=== PATIENT | female | born 1970 | race Two or more races ===

== ENCOUNTER 2016-11-16 20:39 | Inpatient (IN) | payer MEDICAID ==
[~2016-11-16] VITALS: Ht 160 cm; Wt 75.4 kg
[2016-11-16 22:15] LABS: Urine Bilirubin Negative (Negative); Urine Color PINK (Yellow); Urine Glucose Normal (Normal); Urine Ketone Negative (Negative); Urine Mucus FEW (None Seen); Urine Nitrite Negative (Negative); Urine RBC 626 /hpf (0 - 4); Urine Squamous Epithelial Cell FEW /hpf (<5); Urine Urobilinogen Normal (Negative)
[2016-11-16 22:16] LABS: Urine Blood 3+ /uL (Negative)
[2016-11-16 23:11] LABS: Basophils # (auto) 0.1 uL; Basophils % (auto) 0.8 % (0.0-2.0); DEFINITIVE VIEW TRANSMISSION; Eosinophils # (auto) 0.4 uL; Eosinophils % (auto) 4.9 % (0.0-7.0); Hematocrit 16.4 % (36.0-46.0); Lymphocytes # (auto) 2.8 uL; Lymphocytes % (auto) 32.8 % (10.0-50.0); Mean Corpuscular Hemoglobin 16.2 pg (28.0-32.0); Mean Corpuscular Hgb Conc. 28.8 g/dL (32.0-36.0); Mean Corpuscular Volume 56.3 fL (80.0-100.0); Mean Platelet Volume 9.8 fL (7.4-10.4); Monocytes # (auto) 0.4 uL; Neutrophils # (auto) 4.8 uL; Neutrophils % (auto) 56.5 % (37.0-80.0); Platelet Count (auto) 360 10^3/uL (140-450); White Blood Cell 8.6 10^3/uL (4.4-10.8)
[2016-11-16 23:23] LABS: Hemoglobin 4.7 g/dL (12.2-16.2)
[2016-11-16 23:27] LABS: Albumin 3.7 g/dL (3.4-5.0); BUN/Creatinine Ratio 17.6; Calcium 8.4 mg/dL (8.5-10.1); Potassium 3.5 mmol/L (3.5-5.1)
[2016-11-16 23:30] LABS: Bilirubin, Total 0.7 mg/dL (0.2-1.0); Total Protein 7.7 g/dL (6.4-8.2)
[2016-11-17] VITALS (22 sets, daily range): BP systolic 103–124; BP diastolic 52–75
[2016-11-17 06:09] LABS: Hypochromia Marked; Platelet Estimate Adequate
[2016-11-17 06:10] LABS: Microcytosis Marked; Ovalocytes MANY
[2016-11-17 06:12] LABS: Anisocytosis Marked
[2016-11-17] MEDS ORDERED: LEVOFLOXACIN 500MG 100 ML IV SCH (07:00)
[2016-11-17] MEDS ORDERED: NITROGLYCERIN 0.4 MG SL TAB SL PRN (07:00)
[2016-11-17] MEDS ORDERED: ACETAMINOPHEN 325 MG TAB PO ONE (07:00)
[2016-11-17] MEDS ORDERED: ONDANSETRON HCL 4 MG/2 ML VIAL IV PRN (07:00)
[2016-11-17] MEDS ORDERED: ACETAMINOPHEN 325 MG TAB PO PRN (07:00)
[2016-11-17] MEDS ORDERED: MORPHINE SULF INJ 2 MG/ML SYRINGE 1ML IV PRN (07:00)
[2016-11-17] MEDS ORDERED: diphenhdrAMINE HCL 50 MG/1 ML VL IV ONE (07:00)
[2016-11-17 10:23] LABS: Hematocrit 22.8 % (36.0-46.0)
[2016-11-17] MEDS: LEVOFLOXACIN 500MG 100 ML IV SCH (10:26)
[2016-11-17] MEDS: PANTOPRAZOLE 40 MG TAB PO SCH (10:26)
[2016-11-17] MEDS: SODIUM CHLORIDE 0.9% 1,000 ML IV SCH (10:27)
[2016-11-17 10:40] LABS: Hemoglobin 6.9 g/dL (12.2-16.2)
[2016-11-17 18:26] LABS: Hematocrit 30.6 % (36.0-46.0); Hemoglobin 9.2 g/dL (12.2-16.2)
[2016-11-17 22:18] LABS: Hematocrit 29.9 % (36.0-46.0); Hemoglobin 9.1 g/dL (12.2-16.2)
[2016-11-18] VITALS (13 sets, daily range): BP systolic 111–135; BP diastolic 65–80
[2016-11-18] MEDS: SODIUM CHLORIDE 0.9% 1,000 ML IV SCH ×2 (02:58→18:44)
[2016-11-18 06:10] LABS: Basophils # (auto) 0.1 uL; Basophils % (auto) 0.7 % (0.0-2.0); DEFINITIVE VIEW TRANSMISSION; Eosinophils # (auto) 0.3 uL; Eosinophils % (auto) 3.6 % (0.0-7.0); Hematocrit 32.3 % (36.0-46.0); Hemoglobin 9.9 g/dL (12.2-16.2); Lymphocytes # (auto) 1.8 uL; Lymphocytes % (auto) 19.6 % (10.0-50.0); Mean Corpuscular Hemoglobin 22.2 pg (28.0-32.0); Mean Corpuscular Hgb Conc. 30.7 g/dL (32.0-36.0); Mean Corpuscular Volume 72.3 fL (80.0-100.0); Mean Platelet Volume 10.4 fL (7.4-10.4); Monocytes # (auto) 0.6 uL; Monocytes % (auto) 6.1 % (0.0-12.0); Neutrophils # (auto) 6.4 uL; Platelet Count (auto) 275 10^3/uL (140-450); SUSPECT VIEW TRANSMISSION; White Blood Cell 9.2 10^3/uL (4.4-10.8)
[2016-11-18 06:11] LABS: Red Cell Distribution Width 32.6 % (11.6-16.0)
[2016-11-18 06:14] LABS: Anisocytosis Marked; Platelet Estimate Adequate
[2016-11-18 06:15] LABS: Hypochromia Slight; Ovalocytes FEW
[2016-11-18 06:19] LABS: Albumin 3.1 g/dL (3.4-5.0); BUN/Creatinine Ratio 10.9; Calcium 8.4 mg/dL (8.5-10.1)
[2016-11-18 06:22] LABS: Bilirubin, Total 1.3 mg/dL (0.2-1.0); Total Protein 6.9 g/dL (6.4-8.2)
[2016-11-18 06:42] LABS: Microcytosis Moderate
[2016-11-18 08:47] LABS: INR 0.99 (0.9-1.15); Partial Thromboplastin Time 23.3 sec (22.64-33.71); Prothrombin Time 10.7 sec (9.37-12.3)
[2016-11-18] MEDS: LEVOFLOXACIN 500MG 100 ML IV SCH (09:54)
[2016-11-18] MEDS: PANTOPRAZOLE 40 MG TAB PO SCH (09:54)
[2016-11-18] MEDS ORDERED: LIDOCAINE W/ EPINEPHRINE 1 % INJ 30ML ONE (14:27)
[2016-11-18] MEDS ORDERED: LIDOCAINE HCL (LOCAL ANESTH.) 0.5 % 50ML MDV IJ ONE (14:27)
[2016-11-18] MEDS ORDERED: BUPIVACAINE 0.25% INJ 50ML VIAL ONE (14:28)
[2016-11-18] MEDS ORDERED: ceFAZolin 1GM/50ML D5W 50 ML IV ONE (14:38)
[2016-11-18] MEDS ORDERED: CLINDAMYCIN 600MG IV 50 ML IV ONE (14:44)
[2016-11-18] MEDS ORDERED: PROPOFOL 10 MG/ML 20 ML IV ONE (14:50)
[2016-11-18] MEDS ORDERED: MIDAZOLAM HCL 1MG/1ML-2 ML VIAL ONE (14:50)
[2016-11-18] MEDS ORDERED: ROCURONIUM 10MG/ML 10ML VIAL IV ONE (14:50)
[2016-11-18] MEDS ORDERED: fentaNYL CITRATE 100 MCG/2 ML VL ONE ×2 (14:50→15:37)
[2016-11-18] MEDS ORDERED: NEOSTIGMINE 1 MG/ML INJ (10mg/10ML VIAL) IV ONE (14:50)
[2016-11-18] MEDS ORDERED: GLYCOPYRROLATE 0.2 MG/ML 1ML VIAL IV ONE (14:50)
[2016-11-18] MEDS ORDERED: KETOROLAC TROMETH 60MG/2ML VIAL IM ONE (14:50)
[2016-11-18] MEDS ORDERED: hydrALAZINE HCL 20 MG/ML VL IV PRN (16:15)
[2016-11-18] MEDS ORDERED: ePHEDrine SULFATE 50 MG/ML AMP IV PRN (16:15)
[2016-11-18] MEDS ORDERED: ONDANSETRON HCL 4 MG/2 ML VIAL IV ONE (16:15)
[2016-11-18] MEDS ORDERED: CLINDAMYCIN 900MG IV 50 ML IV ONE (16:30)
[2016-11-18] MEDS ORDERED: ONDANSETRON HCL 4 MG/2 ML VIAL IV PRN (16:30)
[2016-11-18] MEDS ORDERED: ACETAMINOPHEN 500 MG TAB PO PRN (16:30)
[2016-11-18] MEDS: HYDROmorphone HCL 2 MG/ML VL IV PRN ×3 (16:35→16:55)
[2016-11-18] MEDS ORDERED: ACETAMINOPHEN 325 MG TAB PO PRN (16:39)
[2016-11-18] MEDS: MORPHINE SULF INJ 2 MG/ML SYRINGE 1ML IV PRN ×2 (18:24→21:03)
[2016-11-18] MEDS: HYDROcodone-ACET 5/325MG TAB PO PRN (19:18)
[2016-11-19] MEDS: SODIUM CHLORIDE 0.9% 1,000 ML IV SCH ×4 (01:39→20:15)
[2016-11-19] MEDS: MORPHINE SULF INJ 2 MG/ML SYRINGE 1ML IV PRN ×4 (01:39→22:04)
[2016-11-19 04:57] VITALS: BP 129/62
[2016-11-19 07:13] LABS: Basophils # (auto) 0 uL; DEFINITIVE VIEW TRANSMISSION; Eosinophils # (auto) 0 uL; Hemoglobin 10.8 g/dL (12.2-16.2); Lymphocytes # (auto) 0.6 uL; Lymphocytes % (auto) 5.4 % (10.0-50.0); Mean Corpuscular Hemoglobin 23.1 pg (28.0-32.0); Mean Corpuscular Hgb Conc. 31.7 g/dL (32.0-36.0); Mean Corpuscular Volume 72.9 fL (80.0-100.0); Mean Platelet Volume 9.4 fL (7.4-10.4); Monocytes # (auto) 0.4 uL; Monocytes % (auto) 3.3 % (0.0-12.0); Neutrophils # (auto) 10.5 uL; Neutrophils % (auto) 91.3 % (37.0-80.0); Platelet Count (auto) 256 10^3/uL (140-450); SUSPECT VIEW TRANSMISSION; White Blood Cell 11.5 10^3/uL (4.4-10.8)
[2016-11-19 07:21] LABS: Red Cell Distribution Width 32.3 % (11.6-16.0)
[2016-11-19 07:37] LABS: Anisocytosis Marked; Hypochromia Moderate; Microcytosis Moderate; Platelet Estimate Adequate; Schistocytes FEW
[2016-11-19 07:38] LABS: Ovalocytes FEW; Tear Drop Cells FEW
[2016-11-19 09:00] VITALS: BP 130/71
[2016-11-19] MEDS: LEVOFLOXACIN 500MG 100 ML IV SCH (09:44)
[2016-11-19] MEDS: PANTOPRAZOLE 40 MG TAB PO SCH (09:45)
[2016-11-19] MEDS: HYDROcodone-ACET 5/325MG TAB PO PRN (13:05)
[2016-11-19 13:28] VITALS: BP 126/73
[2016-11-19 17:00] VITALS: BP 125/76
[2016-11-19 21:31] VITALS: BP 120/61
[2016-11-20] MEDS: MORPHINE SULF INJ 2 MG/ML SYRINGE 1ML IV PRN (02:51)
[2016-11-20 04:48] VITALS: BP 132/81
[2016-11-20 05:41] LABS: Basophils # (auto) 0 uL; Basophils % (auto) 0.3 % (0.0-2.0); DEFINITIVE VIEW TRANSMISSION; Eosinophils # (auto) 0 uL; Eosinophils % (auto) 0.2 % (0.0-7.0); Hematocrit 35.8 % (36.0-46.0); Lymphocytes # (auto) 1.5 uL; Lymphocytes % (auto) 10.1 % (10.0-50.0); Mean Corpuscular Hemoglobin 22.8 pg (28.0-32.0); Mean Corpuscular Hgb Conc. 30.8 g/dL (32.0-36.0); Mean Corpuscular Volume 74.1 fL (80.0-100.0); Mean Platelet Volume 11.1 fL (7.4-10.4); Monocytes # (auto) 0.7 uL; Monocytes % (auto) 4.6 % (0.0-12.0); Neutrophils % (auto) 84.8 % (37.0-80.0); Platelet Count (auto) 299 10^3/uL (140-450); SUSPECT VIEW TRANSMISSION; White Blood Cell 15.3 10^3/uL (4.4-10.8)
[2016-11-20 05:42] LABS: Red Cell Distribution Width 33.3 % (11.6-16.0)
[2016-11-20 06:08] LABS: BUN/Creatinine Ratio 12.2; Calcium 8.7 mg/dL (8.5-10.1); Magnesium 2.3 mg/dL (1.6-2.6); Potassium 3.6 mmol/L (3.5-5.1)
[2016-11-20 06:58] LABS: Anisocytosis Moderate; Macrocytosis Slight; Ovalocytes FEW; Platelet Estimate Adequate; Polychromasia Slight
[2016-11-20] MEDS: SODIUM CHLORIDE 0.9% 1,000 ML IV SCH ×2 (07:24→11:15)
[2016-11-20 08:00] VITALS: BP 132/81
[2016-11-20 09:00] VITALS: BP 128/83
[2016-11-20] MEDS: PANTOPRAZOLE 40 MG TAB PO SCH (10:22)
[2016-11-20] MEDS: LEVOFLOXACIN 500MG 100 ML IV SCH (10:22)
[2016-11-20] MEDS: HYDROcodone-ACET 5/325MG TAB PO PRN ×2 (10:27→19:45)
[2016-11-20 13:00] VITALS: BP 129/81
[2016-11-20 21:11] VITALS: BP 128/72
[2016-11-21] MEDS: SODIUM CHLORIDE 0.9% 1,000 ML IV SCH (01:33)
[2016-11-21 05:06] VITALS: BP 128/74
[2016-11-21] MEDS: HYDROcodone-ACET 5/325MG TAB PO PRN (05:26)
[2016-11-21 05:42] LABS: Basophils # (auto) 0 uL; Basophils % (auto) 0.3 % (0.0-2.0); DEFINITIVE VIEW TRANSMISSION; Eosinophils # (auto) 0.3 uL; Eosinophils % (auto) 2.5 % (0.0-7.0); Hematocrit 38.3 % (36.0-46.0); Hemoglobin 11.9 g/dL (12.2-16.2); Lymphocytes # (auto) 2.2 uL; Mean Corpuscular Hemoglobin 23.1 pg (28.0-32.0); Mean Corpuscular Volume 74.5 fL (80.0-100.0); Mean Platelet Volume 10.2 fL (7.4-10.4); Monocytes # (auto) 0.7 uL; Monocytes % (auto) 6.3 % (0.0-12.0); Neutrophils # (auto) 8.2 uL; Neutrophils % (auto) 71.9 % (37.0-80.0); Platelet Count (auto) 271 10^3/uL (140-450); SUSPECT VIEW TRANSMISSION; White Blood Cell 11.3 10^3/uL (4.4-10.8)
[2016-11-21 05:47] LABS: Red Cell Distribution Width 33.4 % (11.6-16.0)
[2016-11-21 06:53] LABS: Anisocytosis Moderate; Giant Platelets Few; Hypochromia Moderate; Ovalocytes FEW; Platelet Estimate Adequate
[2016-11-21 08:05] VITALS: BP 125/76
[2016-11-21 08:56] VITALS: BP 125/76
[2016-11-21] MEDS: LEVOFLOXACIN 500MG 100 ML IV SCH (09:56)
[2016-11-21] MEDS: PANTOPRAZOLE 40 MG TAB PO SCH (09:56)
[2016-11-21 13:00] VITALS: BP 136/72
[2016-11-21 14:35] VITALS: BP 125/76
== END 2016-11-21 15:40 | disposition home or self-care (01) | DRG 519 ==
LOC: ER 20:49 → TELE 20:50 → TELE-WESTW 11-17 09:34
PROVIDERS: ADMIT Nurse Practitioner; ATTEND Internal Medicine
PROC: 30233N1 Transfusion of Nonautologous Red Blood Cells into Peripheral Vein, Percutaneous Approach (ICD-10-PCS; 2016-11-17)
PROC: 0UTC0ZZ Resection of Cervix, Open Approach (ICD-10-PCS; 2016-11-18)
PROC: 0UT70ZZ Resection of Bilateral Fallopian Tubes, Open Approach (ICD-10-PCS; 2016-11-18)
PROC: 0UT90ZZ Resection of Uterus, Open Approach (ICD-10-PCS; principal; 2016-11-18 14:50)
DX: D25.0 Submucous leiomyoma of uterus (principal); N39.0 Urinary tract infection, site not specified; N80.0 Endometriosis of uterus; N92.0 Excessive and frequent menstruation with regular cycle; R73.9 Hyperglycemia, unspecified; D50.0 Iron deficiency anemia secondary to blood loss (chronic); R63.4 Abnormal weight loss; N73.6 Female pelvic peritoneal adhesions (postinfective); Z83.3 Family history of diabetes mellitus; Z82.49 Family history of ischemic heart disease and other diseases of the circulatory system; Z88.0 Allergy status to penicillin; Z68.29 Body mass index [BMI] 29.0-29.9, adult
CPT/HCPCS: 36415; 36430; 71010; 76830; 76856; 80048; 80053; 80061; 81001; 81025; 83036; 83735; 84702; 85014; 85018; 85025; 85610; 85730; 86850; 86900; 86901; 86920; 93005; 96374; J0690; J1885; J1956; J2250; J2405; J2704; J3490

== ENCOUNTER → 2016-12-08 | Outpatient (CLI) | payer MEDICAID ==
[2016-12-08 12:50] LABS: Basophils # (auto) 0.1 uL; Basophils % (auto) 0.7 % (0.0-2.0); DEFINITIVE VIEW TRANSMISSION; Eosinophils # (auto) 0.4 uL; Eosinophils % (auto) 4.6 % (0.0-7.0); Hematocrit 38.4 % (36.0-46.0); Hemoglobin 12.5 g/dL (12.2-16.2); Lymphocytes # (auto) 2.4 uL; Lymphocytes % (auto) 26.3 % (10.0-50.0); Mean Corpuscular Hemoglobin 24.7 pg (28.0-32.0); Mean Corpuscular Hgb Conc. 32.5 g/dL (32.0-36.0); Mean Corpuscular Volume 76.2 fL (80.0-100.0); Mean Platelet Volume 9.2 fL (7.4-10.4); Monocytes # (auto) 0.4 uL; Monocytes % (auto) 4.4 % (0.0-12.0); Neutrophils # (auto) 5.8 uL; Platelet Count (auto) 546 10^3/uL (140-450); SUSPECT VIEW TRANSMISSION
[2016-12-08 12:56] LABS: Red Cell Distribution Width 30.7 % (11.6-16.0)
[2016-12-08 13:48] LABS: Platelet Estimate Adequate
[2016-12-08 13:50] LABS: Anisocytosis Moderate; Hypochromia Slight; Ovalocytes FEW
== END | disposition home or self-care (01) ==
LOC: LAB 12:02
PROVIDERS: ATTEND Obstetrics & Gynecology
DX: R53.1 Weakness (principal)
CPT/HCPCS: 36415; 85025

== ENCOUNTER 2017-07-28 10:45 | Emergency (ER) | payer SELFPAY ==
[~2017-07-28] VITALS: Ht 160 cm; Wt 72.6 kg
[2017-07-28] MEDS ORDERED: SODIUM CHLORIDE 0.9% 1,000 ML IV ONE (13:15)
[2017-07-28 13:53] LABS: Basophils # (auto) 0.1 uL; Basophils % (auto) 0.8 % (0.0-2.0); Eosinophils # (auto) 0.4 uL; Hematocrit 46.4 % (36.0-46.0); Hemoglobin 15.6 g/dL (12.2-16.2); Lymphocytes # (auto) 1.6 uL; Lymphocytes % (auto) 24.8 % (10.0-50.0); Mean Corpuscular Hemoglobin 28.5 pg (28.0-32.0); Mean Corpuscular Hgb Conc. 33.5 g/dL (32.0-36.0); Mean Corpuscular Volume 85.1 fL (80.0-100.0); Monocytes # (auto) 0.4 uL; Monocytes % (auto) 5.5 % (0.0-12.0); Neutrophils % (auto) 62.9 % (37.0-80.0); Nucleated Red Blood Cells % 0.1 %; Platelet Count (auto) 209 10^3/uL (140-450); Red Blood Cells 5.46 10^6/uL (4.0-5.20); Red Cell Distribution Width 14.9 % (11.8-14.3); White Blood Cell 6.4 10^3/uL (4.4-10.8)
[2017-07-28 13:55] LABS: Albumin 3.9 g/dL (3.4-5.0); Bilirubin, Total 1.4 mg/dL (0.2-1.0); Calcium 9.1 mg/dL (8.5-10.1); Potassium 3.8 mmol/L (3.5-5.1); Total Protein 8.1 g/dL (6.4-8.2)
[2017-07-28 14:01] VITALS: BP 116/65
== END 2017-07-28 14:52 | disposition home or self-care (01) ==
LOC: ER 10:45
DX: N76.0 Acute vaginitis (principal); E11.65 Type 2 diabetes mellitus with hyperglycemia; Z88.0 Allergy status to penicillin
CPT/HCPCS: 36415; 80053; 82962; 85025; 87210; 96360; 99284; J7030

== ENCOUNTER 2020-10-12 14:08 | Emergency (ER) | payer MEDICAID ==
[~2020-10-12] VITALS: Ht 157.5 cm; Wt 72.6 kg
[2020-10-12] MEDS ORDERED: KETOROLAC TROMETH 60MG/2ML VIAL IM ONE (17:15)
[2020-10-12] MEDS ORDERED: IOHEXOL 300 MG/ML 100ML BOTTLE IJ ONE (21:11)
[2020-10-12 21:43] LABS: Basophils # (auto) 0 10 ^3/uL (0-0.2); Basophils % (auto) 0.5 % (0.0-2.0); Eosinophils # (auto) 0.1 10 ^3/uL (0-0.8); Eosinophils % (auto) 1.1 % (0.0-7.0); Hematocrit 43.3 % (36.0-46.0); Hemoglobin 15.4 g/dL (12.2-16.2); Lymphocytes # (auto) 1.7 10 ^3/uL (0.4-5.4); Lymphocytes % (auto) 17.5 % (10.0-50.0); Mean Corpuscular Hemoglobin 31.5 pg (28.0-32.0); Mean Corpuscular Hgb Conc. 35.5 g/dL (32.0-36.0); Mean Corpuscular Volume 88.7 fL (80.0-100.0); Monocytes # (auto) 0.4 10 ^3/uL (0-1.3); Monocytes % (auto) 4.4 % (0.0-12.0); Neutrophils # (auto) 7.4 10 ^3/uL (1.6-8.6); Neutrophils % (auto) 76.5 % (37.0-80.0); Nucleated Red Blood Cells % 0.9 %; Platelet Count (auto) 227 10^3/uL (140-450); Red Blood Cells 4.88 10^6/uL (4.0-5.20); Red Cell Distribution Width 13.3 % (11.8-14.3); White Blood Cell 9.6 10^3/uL (4.4-10.8)
[2020-10-12 21:58] LABS: INR 0.97 (0.9-1.15); Partial Thromboplastin Time 22.8 sec (23.0-31.2)
[2020-10-12 21:59] LABS: Alanine Aminotransferase 101 U/L (13-56); Albumin 3.8 g/dL (3.4-5.0); Anion Gap 12 (5-15); Aspartate Aminotransferase 84 U/L (15-37); BUN/Creatinine Ratio 13.6; Blood Urea Nitrogen 9 mg/dL (7-18); Calcium 8.9 mg/dL (8.5-10.1); Carbon Dioxide 22 mmol/L (21-32); Chloride 99 mmol/L (98-107); GFR African American 122 mL/min; GFR Non-African American 101 mL/min; Potassium 4.1 mmol/L (3.5-5.1); Sodium 133 mmol/L (136-145)
[2020-10-12 22:02] LABS: Glucose 406 mg/dL (74-106)
[2020-10-12 22:04] LABS: Alkaline Phosphatase 169 U/L (45-117); Bilirubin, Total 1.3 mg/dL (0.2-1.0); Total Protein 7.6 g/dL (6.4-8.2)
[2020-10-12] MEDS ORDERED: InsuLIN REG 1unit/0.01ml Soln (100units/ml) IV ONE (22:45)
[2020-10-12] MEDS ORDERED: ONDANSETRON ODT 4 MG TAB PO ONE (22:45)
[2020-10-12] MEDS ORDERED: SODIUM CHLORIDE 0.9% 1,000 ML IV ONE (22:45)
[2020-10-12] MEDS ORDERED: HYDROcodone-ACET 10/325MG TAB PO ONE (22:45)
[2020-10-13] VITALS: BP 110/78
== END 2020-10-13 00:45 | disposition home or self-care (01) ==
LOC: ER 14:08 → EDBD 14:08 → ER 10-13 00:45
DX: S16.1XXA Strain of muscle, fascia and tendon at neck level, initial encounter (principal); S30.0XXA Contusion of lower back and pelvis, initial encounter; R73.9 Hyperglycemia, unspecified; R74.9 Abnormal serum enzyme level, unspecified; R16.0 Hepatomegaly, not elsewhere classified; V49.9XXA Car occupant (driver) (passenger) injured in unspecified traffic accident, initial encounter; Y93.89 Activity, other specified; Y92.89 Other specified places as the place of occurrence of the external cause; Y99.8 Other external cause status
CPT/HCPCS: 36415; 70450; 71045; 71250; 71260; 72070; 72125; 74177; 80053; 82962; 84484; 85025; 85610; 85730; 93005; 96361; 96372; 96374; 99285; J1815; J1885; Q0162; Q9967; 96360